=== PATIENT | female | born 1965 | race African-American/Black ===

== ENCOUNTER 2021-12-02 12:07 | Emergency (ER) | payer OTHER ==
[~2021-12-02] VITALS: Ht 165.1 cm; Wt 68.0 kg
--- NOTE | 2021-12-02 12:11 | NUR ---
[id number] FROM [facility] C/O CHEST PAIN X 3 DAYS. 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 DENIES CHEST PAIN AT THIS TIME. PT STATED THAT PAIN STARTED 3 DAYS AGO AND WAS 10/10 PAIN PT DESCRIBED IT THROBBING AND RADIATED TO HER R SHOULDER, PAIN COMES AND GOES. ATTACHED TO MONITOR. DR JUAREZ AT BEDSIDE. AWAITING MD ORDERS.
--- NOTE | 2021-12-02 12:50 | NUR ---
IV CHELSEY R AC 18G. LABS DRAWN AND COLLECTED AT BEDSIDE.
[2021-12-02 13:01] LABS: BASOPHILS % (AUTO) 0.6 % (0.0-2.0); EOSINOPHILS % (AUTO) 0.6 % (0.0-6.0); HEMATOCRIT 43 % (33-45); HEMOGLOBIN 14.2 g/dL (11.5-14.8); LYMPHOCYTES # (AUTO) 2.8 K/uL (0.8-4.8); LYMPHOCYTES % (AUTO) 56.4 % (20.0-44.0); MEAN CORPUSCULAR HGB CONC 33 g/dl (31.0-36.0); MEAN CORPUSCULAR VOLUME 79 fL (82-100); MONOCYTES # (AUTO) 0.2 K/uL (0.1-1.30); MONOCYTES % (AUTO) 4.9 % (2.0-12.0); NEUTROPHILS # (AUTO) 1.9 K/uL (1.8-8.9); NEUTROPHILS % (AUTO) 37.5 % (43.0-81.0); PLATELET COUNT (AUTO) 251 K/uL (150-450)
[2021-12-02 13:10] LABS: CALCIUM, SERUM 9.4 mg/dL (8.5-10.1); CARBON DIOXIDE 27 mmol/L (21-32); CHLORIDE 103 mmol/L (98-107); CREATININE 0.9 mg/dL (0.6-1.3); GLUCOSE 98 mg/dL (74-106); POTASSIUM 4.6 mmol/L (3.5-5.1); SODIUM SERUM 138 mmol/L (136-145); UREA NITROGEN, BLOOD 21 mg/dL (7-18)
--- NOTE | 2021-12-02 13:46 | NUR ---
PT TAKEN TO CT VIA [facility]
--- NOTE | 2021-12-02 13:56 | NUR ---
PT BACK FROM CT VIA [facility]
--- NOTE | 2021-12-02 15:58 | NUR ---
IV removed. Catheter intact and site benign. Pressure and 4x4 applied to site. No bleeding noted.Patient discharged to home in stable condition. Written and verbal after care instructions given. Patient verbalizes understanding of instruction.
[2021-12-02 16:18] VITALS: BP 133/65
== END 2021-12-02 16:19 ==
LOC: ER 12:09
DX: R07.89 Other chest pain (principal); R51.9 Headache, unspecified; I10 Essential (primary) hypertension; Z88.5 Allergy status to narcotic agent; Z88.6 Allergy status to analgesic agent
CPT/HCPCS: 36415; 70450-TC; 71045-TC; 80048-TC; 84484-TC; 85025-TC